=== PATIENT | female | born 1985 | race African-American/Black ===

== ENCOUNTER 2020-11-24 13:41 | Emergency (ER) | payer SELFPAY ==
[~2020-11-24] VITALS: Ht 165.1 cm; Wt 98.0 kg
[2020-11-24 16:21] LABS: BASOPHILS % 0.6 % (0.0-2.0); EOSINOPHILS % 1.3 % (0.0-5.0); HEMATOCRIT. 38.7 % (36.0-48.0); HEMOGLOBIN. 12.8 g/dL (12.0-16.0); LYMPHOCYTES % 11.6 % (20.0-50.0); MEAN CORPUSCULAR HEMOGLOBIN 28.3 pg (28.0-32.0); MEAN CORPUSCULAR VOLUME 85.7 fL (81.0-99.0); MEAN PLATELET VOLUME 8.2 fl (7.4-10.4); MONOCYTES % 3.2 % (2.0-8.0); NEUTROPHILS % 83.3 % (40.0-76.0); PLATELET 388 x1000/uL (130-400); RED BLOOD CELL COUNT 4.52 mill/uL (4.2-5.4); RED CELL DISTRIBUTION WIDTH 14.1 % (11.6-14.6)
[2020-11-24 16:29] LABS: CHLORIDE 106 mEq/L (98-107)
[2020-11-24 16:33] LABS: ETHANOL BLOOD < 10 mg/dL
[2020-11-24] MEDS ORDERED: KCL 20MEQ/100ML PREMIX 100 ML IV ONE (16:45)
[2020-11-24 19:30] VITALS: BP 135/88
== END 2020-11-24 19:30 | disposition home or self-care (01) ==
LOC: ER 13:49
DX: T43.625A Adverse effect of amphetamines, initial encounter (principal); X58.XXXA Exposure to other specified factors, initial encounter
CPT/HCPCS: 36415; 70450; 80053; 80320; 82962; 85025; 93005; 99285; J3480; Z7610; G0480